=== PATIENT | female | born 1945 | race Caucasian/White ===

== ENCOUNTER → 2018-05-05 | Outpatient (CLI) | payer MEDICARE, OTHER | END | disposition home or self-care (01) | LOC: RAH 10:50 | PROVIDERS: ATTEND Physical Medicine & Rehabilitation | DX: R22.43 Localized swelling, mass and lump, lower limb, bilateral (principal) | CPT/HCPCS: 93970 ==

== ENCOUNTER 2018-09-26 18:16 | Inpatient (IN) | payer MEDICARE, OTHER ==
[~2018-09-26] VITALS: Ht 160 cm; Wt 97.9 kg
[~2018-09-26 18:16] MED LIST: ASPI-555 PO; ATOR40TA71 PO; FENO134C PO; FLUT1BLS3 IH; FURO40TA5 PO; GABA-531 PO; LEVO75TA10 PO
[2018-09-26] MEDS ORDERED: FENTANYL CITRATE PF 50 MCG/1 ML 2ML VIAL ONE (20:38)
[2018-09-26] MEDS ORDERED: ONDANSETRON HCL 4 MG/2 ML VIAL ONE (20:38)
[2018-09-26 22:12] LABS: APPEARANCE,URINE Clear (CLEAR); BILIRUBIN,URINE Negative (NEGATIVE); COLOR,URINE Yellow (YELLOW); GLUCOSE, URINE (UA) Negative (NEGATIVE); KETONES,URINE Negative (NEGATIVE); LEUKOCYTE ESTERASE ,URINE Negative (NEGATIVE); NITRATE,URINE Negative (NEGATIVE); OCCULT BLOOD,URINE Negative (NEGATIVE); PH,URINE 6.5 (5.0-8.0); PROTEIN,URINE Negative (NEGATIVE); UROBILINOGEN,URINE 0.2 mg/dL (0.2-1.0)
[2018-09-26] MEDS ORDERED: ACETAMINOPHEN 325 MG TAB PO PRN (22:15)
[2018-09-26] MEDS ORDERED: MORPHINE SULFATE 2 MG/ML 1ML SYG IV PRN (22:15)
[2018-09-26] MEDS ORDERED: ONDANSETRON HCL 4 MG/2 ML VIAL IV PRN (22:15)
[2018-09-26 23:10] VITALS: BP 146/79
[2018-09-27 04:00] VITALS: BP 154/68
[2018-09-27 07:29] VITALS: BP 158/77
[2018-09-27] MEDS: LEVOTHYROXINE 75 MCG TABLET PO SCH (09:00)
[2018-09-27] MEDS: GABAPENTIN 300 MG CAPSULE PO SCH ×3 (10:05→22:57)
[2018-09-27] MEDS: FAMOTIDINE 20MG TAB 20 MG TAB PO SCH ×2 (10:05→22:57)
[2018-09-27] MEDS: FUROSEMIDE 40 MG TABLET PO SCH ×2 (10:05→22:58)
[2018-09-27] MEDS: ENOXAPARIN SODIUM 40 MG/0.4 ML SYRINGE SQ SCH (10:07)
[2018-09-27] MEDS ORDERED: MORPHINE SULFATE 2 MG/ML 1ML SYG ONE (10:47)
[2018-09-27 11:00] VITALS: BP 144/80
[2018-09-27] MEDS: IPRATROPIUM/ALBUTEROL SULFATE 3 ML SOLUTION IH SCH ×2 (13:11→18:12)
[2018-09-27 16:00] VITALS: BP 144/74
[2018-09-27] MEDS: BUDESONIDE 0.5 MG/2 ML INH IH SCH (18:12)
[2018-09-27] MEDS ORDERED: GLUCAGON 1MG KIT 1 MG ML IM PRN (18:45)
[2018-09-27] MEDS ORDERED: DEXTROSE 50%-WATER 50 ML DISP.SYRIN IV PRN (18:45)
[2018-09-27] MEDS: DEXAMETHASONE SOD PHOSPHATE 4 MG/ML 1ML VIAL IVP SCH ×2 (19:09→23:54)
[2018-09-27] MEDS: MORPHINE SULFATE 2 MG/ML 1ML SYG IM PRN ×2 (19:10→23:53)
[2018-09-27 20:00] VITALS: BP 154/68
[2018-09-27] MEDS: FENOFIBRATE NANOCRYSTALLIZED 145 MG TAB PO SCH (22:57)
[2018-09-27] MEDS: ATORVASTATIN CALCIUM 40 MG TABLET PO SCH (22:58)
[2018-09-28] VITALS (25 sets, daily range): BP systolic 123–162; BP diastolic 58–80
[2018-09-28] MEDS: IPRATROPIUM/ALBUTEROL SULFATE 3 ML SOLUTION IH SCH ×5 (00:25→23:29)
[2018-09-28] MEDS: INSULIN R NPO SSI SQ SCH ×4 (06:00→18:00)
[2018-09-28] MEDS: DEXAMETHASONE SOD PHOSPHATE 4 MG/ML 1ML VIAL IVP SCH ×7 (06:05→23:33)
[2018-09-28] MEDS: MORPHINE SULFATE 2 MG/ML 1ML SYG IVP PRN ×2 (06:06→12:01)
[2018-09-28] MEDS: LEVOTHYROXINE 75 MCG TABLET PO SCH (06:30)
[2018-09-28] MEDS: BUDESONIDE 0.5 MG/2 ML INH IH SCH ×2 (06:38→18:34)
[2018-09-28] MEDS ORDERED: BUPIVACAINE/EPI/PF 0.25% 30ML VIAL IJ ONE (06:48)
[2018-09-28] MEDS ORDERED: THROMBIN-JMI 20000 UNIT KIT TP ONE (06:48)
[2018-09-28] MEDS ORDERED: DURAMORPH PF1 MG/ML 10ML AMP IV ONE (06:48)
[2018-09-28] MEDS ORDERED: BACITRACIN 50,000 UNIT VIAL ONE ×3 (06:48→08:23)
[2018-09-28] MEDS ORDERED: SODIUM CHLORIDE 0.9% 1000ML 1,000 ML IV ONE (06:52)
[2018-09-28] MEDS ORDERED: GLYCOPYRROLATE 1 MG/5 ML SYRINGE ONE (06:54)
[2018-09-28] MEDS ORDERED: LIDOCAINE PF 2% 5ML ABBOJECT ONE (06:54)
[2018-09-28] MEDS ORDERED: DEXAMETHASONE SOD PHOSPHATE 10MG/ML 1ML VIAL ONE ×2 (06:54→07:00)
[2018-09-28] MEDS ORDERED: NEOSTIGMINE 5MG/5ML SYR IV ONE (06:55)
[2018-09-28] MEDS ORDERED: PROPOFOL 10 MG/ML 20ML VIAL IV ONE (06:55)
[2018-09-28] MEDS ORDERED: ONDANSETRON HCL 4 MG/2 ML VIAL ONE (06:55)
[2018-09-28] MEDS ORDERED: MIDAZOLAM HCL 1 MG/ML 2ML VIAL ONE (06:55)
[2018-09-28] MEDS ORDERED: ROCURONIUM 10MG/1ML SYR 10 MG/ML ML ONE (06:55)
[2018-09-28] MEDS ORDERED: FENTANYL CITRATE PF 50 MCG/1 ML 2ML VIAL ONE ×2 (06:56→08:31)
[2018-09-28] MEDS: CEFAZOLIN SODIUM 1 GM VIAL IVP SCH ×4 (07:01→18:07)
[2018-09-28] MEDS ORDERED: EPHEDRINE SULFATE 50 MG/ML AMPULE ONE (07:27)
[2018-09-28] MEDS ORDERED: GENTAMICIN 80 MG/NS 100 ML PB 100 ML IV ONE (07:43)
[2018-09-28] MEDS ORDERED: GENTAMICIN SULFATE 80 MG/2 ML VIAL ONE (08:23)
[2018-09-28] MEDS: FAMOTIDINE 20MG TAB 20 MG TAB PO SCH ×2 (09:00→22:15)
[2018-09-28] MEDS: ENOXAPARIN SODIUM 40 MG/0.4 ML SYRINGE SQ SCH (09:00)
[2018-09-28] MEDS: FUROSEMIDE 40 MG TABLET PO SCH ×2 (09:00→22:15)
[2018-09-28] MEDS: GABAPENTIN 300 MG CAPSULE PO SCH ×3 (09:00→22:15)
[2018-09-28] MEDS ORDERED: SODIUM CHLORIDE 0.9% 10 ML VIAL IVP PRN (09:30)
[2018-09-28] MEDS ORDERED: MORPHINE SULFATE 2 MG/ML 1ML SYG IVP PRN (09:30)
[2018-09-28] MEDS ORDERED: PROMETHAZINE HCL 25 MG/ML 1ML AMPULE IM PRN (09:30)
[2018-09-28] MEDS ORDERED: ESMOLOL HCL 10 MG/ML 10 ML VIAL ONE (09:32)
[2018-09-28] MEDS: ASPIRIN 81 MG EC TAB PO SCH (09:41)
[2018-09-28] MEDS ORDERED: LABETALOL HCL 5 MG/ML 20ML VIAL IV ONE (10:16)
[2018-09-28] MEDS: LACTATED RINGERS 1000ML 1,000 ML IV SCH ×2 (12:02→22:37)
[2018-09-28] MEDS: HYDROCODONE/ACETAMINOPHEN 5/325 MG TAB PO PRN ×2 (18:07→22:26)
[2018-09-28] MEDS: FENOFIBRATE NANOCRYSTALLIZED 145 MG TAB PO SCH (22:15)
[2018-09-28] MEDS: ATORVASTATIN CALCIUM 40 MG TABLET PO SCH (22:15)
[2018-09-29] MEDS: CEFAZOLIN SODIUM 1 GM VIAL IVP SCH ×4 (00:34→18:57)
[2018-09-29] MEDS: LACTATED RINGERS 1000ML 1,000 ML IV SCH ×2 (00:40→13:41)
[2018-09-29] MEDS: DEXAMETHASONE SOD PHOSPHATE 4 MG/ML 1ML VIAL IVP SCH ×4 (03:43→20:56)
[2018-09-29 03:46] VITALS: BP 126/71
[2018-09-29] MEDS: HYDROCODONE/ACETAMINOPHEN 5/325 MG TAB PO PRN ×2 (04:44→13:41)
[2018-09-29 05:22] LABS: BASOPHILS % (AUTO) 0.4 % (0.0-5.0); HEMATOCRIT 29.5 % (36-48); LYMPHOCYTES % (AUTO) 5.9 % (21.0-51.0); MEAN CORPUSCULAR HEMOGLOBIN 26.4 pg (27.0-33.0); MEAN CORPUSCULAR VOLUME 80.2 fL (79-99); MONOCYTES % (AUTO) 6.3 % (3.0-13.0); NEUTROPHILS % (AUTO) 87.4 % (40.0-77.0); PLATELET COUNT (AUTO) 278 K/uL (130-400); RED BLOOD CELL COUNT(AUTO) 3.67 MIL/uL (4.00-5.50); RED CELL DISTRIBUTION WIDTH 15.5 % (11.0-15.5); WHITE BLOOD COUNT (AUTO) 12.7 K/uL (4.8-10.8)
[2018-09-29 05:30] LABS: CREATININE 0.9 mg/dL (0.5-1.5); POTASSIUM 3.7 mmol/L (3.5-5.1)
[2018-09-29] MEDS: IPRATROPIUM/ALBUTEROL SULFATE 3 ML SOLUTION IH SCH ×4 (05:56→23:03)
[2018-09-29] MEDS: INSULIN R NPO SSI SQ SCH ×2 (06:00)
[2018-09-29] MEDS: BUDESONIDE 0.5 MG/2 ML INH IH SCH ×2 (06:09→18:32)
[2018-09-29] MEDS: LEVOTHYROXINE 75 MCG TABLET PO SCH (06:31)
[2018-09-29 07:00] VITALS: BP 115/60
[2018-09-29] MEDS ORDERED: LACTULOSE 20 GM/30 ML UDCUP PO PRN (07:45)
[2018-09-29] MEDS: FAMOTIDINE 20MG TAB 20 MG TAB PO SCH ×2 (08:55→20:55)
[2018-09-29] MEDS: FUROSEMIDE 40 MG TABLET PO SCH ×2 (08:55→20:55)
[2018-09-29] MEDS: LACTULOSE 20 GM/30 ML UDCUP PO PRN ×2 (08:55→19:58)
[2018-09-29] MEDS: GABAPENTIN 300 MG CAPSULE PO SCH ×3 (08:55→20:55)
[2018-09-29] MEDS: ASPIRIN 81 MG EC TAB PO SCH (08:55)
[2018-09-29] MEDS: ENOXAPARIN SODIUM 40 MG/0.4 ML SYRINGE SQ SCH (08:56)
[2018-09-29 11:27] VITALS: BP 132/64
[2018-09-29] MEDS: INSULIN HUMULIN R 100 UNIT/ML 3ML SQ SCH ×3 (13:50→21:27)
[2018-09-29 15:00] VITALS: BP 147/72
[2018-09-29 19:51] VITALS: BP 138/60
[2018-09-29] MEDS: FENOFIBRATE NANOCRYSTALLIZED 145 MG TAB PO SCH (20:55)
[2018-09-29] MEDS: ATORVASTATIN CALCIUM 40 MG TABLET PO SCH (20:55)
[2018-09-29 23:42] VITALS: BP 168/75
[2018-09-30] MEDS: CEFAZOLIN SODIUM 1 GM VIAL IVP SCH ×2 (00:05→05:25)
[2018-09-30] MEDS: HYDROCODONE/ACETAMINOPHEN 5/325 MG TAB PO PRN (00:05)
[2018-09-30 04:00] VITALS: BP 150/76
[2018-09-30] MEDS: DEXAMETHASONE SOD PHOSPHATE 4 MG/ML 1ML VIAL IVP SCH ×2 (04:50→09:37)
[2018-09-30] MEDS: LACTATED RINGERS 1000ML 1,000 ML IV SCH (04:50)
[2018-09-30] MEDS: LEVOTHYROXINE 75 MCG TABLET PO SCH (05:25)
[2018-09-30] MEDS: INSULIN HUMULIN R 100 UNIT/ML 3ML SQ SCH ×2 (05:28→11:49)
[2018-09-30 06:16] LABS: BASOPHILS % (AUTO) 0.6 % (0.0-5.0); HEMATOCRIT 31.7 % (36-48); LYMPHOCYTES % (AUTO) 10.5 % (21.0-51.0); MEAN CORPUSCULAR HEMOGLOBIN 26.7 pg (27.0-33.0); MEAN CORPUSCULAR VOLUME 80.9 fL (79-99); MONOCYTES % (AUTO) 7.8 % (3.0-13.0); NEUTROPHILS % (AUTO) 81.1 % (40.0-77.0); PLATELET COUNT (AUTO) 366 K/uL (130-400); RED BLOOD CELL COUNT(AUTO) 3.91 MIL/uL (4.00-5.50); RED CELL DISTRIBUTION WIDTH 15.6 % (11.0-15.5); WHITE BLOOD COUNT (AUTO) 11.7 K/uL (4.8-10.8)
[2018-09-30] MEDS: IPRATROPIUM/ALBUTEROL SULFATE 3 ML SOLUTION IH SCH ×2 (06:25→11:33)
[2018-09-30 06:26] LABS: CREATININE 1.1 mg/dL (0.5-1.5); POTASSIUM 3.4 mmol/L (3.5-5.1)
[2018-09-30] MEDS: BUDESONIDE 0.5 MG/2 ML INH IH SCH (06:35)
[2018-09-30 07:00] VITALS: BP 143/73
[2018-09-30] MEDS: FUROSEMIDE 40 MG TABLET PO SCH (08:57)
[2018-09-30] MEDS: ASPIRIN 81 MG EC TAB PO SCH (08:57)
[2018-09-30] MEDS: GABAPENTIN 300 MG CAPSULE PO SCH (08:57)
[2018-09-30] MEDS: FAMOTIDINE 20MG TAB 20 MG TAB PO SCH (08:57)
[2018-09-30] MEDS: ENOXAPARIN SODIUM 40 MG/0.4 ML SYRINGE SQ SCH (09:00)
[2018-09-30 11:00] VITALS: BP 151/81
[2018-09-30] MEDS: MORPHINE SULFATE 2 MG/ML 1ML SYG IVP PRN (11:17)
== END 2018-09-30 15:00 | DRG 30 ==
LOC: EDH 18:16 → OBSVTOIN 21:30 → EDHIP 21:30 → 3BH 23:06
PROVIDERS: ADMIT Hospitalist; ATTEND Hospitalist
PROC: 009U0ZZ Drainage of Spinal Canal, Open Approach (ICD-10-PCS; principal; 2018-09-28 07:56)
PROC: 01NB0ZZ Release Lumbar Nerve, Open Approach (ICD-10-PCS; 2018-09-28 07:56)
DX: S06.4X0A Epidural hemorrhage without loss of consciousness, initial encounter (principal); M48.061 Spinal stenosis, lumbar region without neurogenic claudication; E78.5 Hyperlipidemia, unspecified; F17.210 Nicotine dependence, cigarettes, uncomplicated; I25.10 Atherosclerotic heart disease of native coronary artery without angina pectoris; E03.9 Hypothyroidism, unspecified; W01.0XXA Fall on same level from slipping, tripping and stumbling without subsequent striking against object, initial encounter; E66.01 Morbid (severe) obesity due to excess calories; Y93.01 Activity, walking, marching and hiking; Z82.3 Family history of stroke; Z90.710 Acquired absence of both cervix and uterus; Z98.1 Arthrodesis status; Z90.49 Acquired absence of other specified parts of digestive tract; Z90.89 Acquired absence of other organs; Z79.899 Other long term (current) drug therapy; Z68.38 Body mass index [BMI] 38.0-38.9, adult; Y92.89 Other specified places as the place of occurrence of the external cause; Y99.8 Other external cause status; R33.9 Retention of urine, unspecified
CPT/HCPCS: 36415; 72020; 72100; 72148; 73560; 80048; 81003; 82948; 85025; 87070; 87076; 87205; 94640; 94664; 97039; A4218; A4344; J0690; J1100; J1580; J1650; J1815; J2001; J2250; J2274; J2405; J2704; J2710; J3010; J3490; J7030; J7120

== ENCOUNTER 2018-10-20 12:23 | Emergency (ER) | payer MEDICARE, OTHER ==
[2018-10-20 13:00] LABS: BASOPHILS % (AUTO) 0.7 % (0.0-5.0); EOSINOPHILS % (AUTO) 1.4 % (0.0-8.0); HEMATOCRIT 35.4 % (36-48); MEAN CORPUSCULAR HEMOGLOBIN 25.6 pg (27.0-33.0); MEAN CORPUSCULAR HGB CONC 32.5 g/dL (32.0-36.0); MEAN CORPUSCULAR VOLUME 78.9 fL (79-99); MONOCYTES % (AUTO) 11.4 % (3.0-13.0); NEUTROPHILS % (AUTO) 67.5 % (40.0-77.0); PLATELET COUNT (AUTO) 347 K/uL (130-400); RED BLOOD CELL COUNT(AUTO) 4.49 MIL/uL (4.00-5.50); RED CELL DISTRIBUTION WIDTH 15.3 % (11.0-15.5); WHITE BLOOD COUNT (AUTO) 7.3 K/uL (4.8-10.8)
[2018-10-20] MEDS ORDERED: SODIUM CHLORIDE 0.9% 1000ML 1,000 ML IV ONE (13:02)
[2018-10-20] MEDS ORDERED: ONDANSETRON HCL 4 MG/2 ML VIAL ONE (13:03)
[2018-10-20 13:11] LABS: CREATININE 0.9 mg/dL (0.5-1.5); POTASSIUM 3.5 mmol/L (3.5-5.1)
[2018-10-20 13:21] LABS: ALBUMIN 3.5 g/dL (3.5-5.0); BILIRUBIN,TOTAL 0.4 mg/dL (0.2-1.0); TOTAL PROTEIN, SERUM 7.5 g/dL (6.0-8.3)
== END 2018-10-20 15:20 | disposition home or self-care (01) ==
LOC: EDH 12:23
CPT/HCPCS: 36415; 80053; 85025; 96361; 96374; J2405; J7030

== ENCOUNTER → 2018-11-13 | Outpatient (CLI) | payer MEDICARE, OTHER | END | disposition home or self-care (01) | LOC: RAH 10:27 | PROVIDERS: ATTEND Neurological Surgery | DX: M43.26 Fusion of spine, lumbar region (principal); I70.0 Atherosclerosis of aorta | CPT/HCPCS: 72100 ==

== ENCOUNTER → 2019-07-14 | Outpatient (CLI) | payer MEDICARE, OTHER | END | disposition home or self-care (01) | LOC: SHCH 12:13 | PROVIDERS: ATTEND Internal Medicine Cardiovascular Disease | DX: I87.2 Venous insufficiency (chronic) (peripheral) (principal) | CPT/HCPCS: 93970 ==

== ENCOUNTER → 2019-09-24 | Outpatient (CLI) | payer MEDICARE, OTHER | END | disposition home or self-care (01) | LOC: RAH 12:46 | PROVIDERS: ATTEND Physical Medicine & Rehabilitation | DX: M47.26 Other spondylosis with radiculopathy, lumbar region (principal); M99.13 Subluxation complex (vertebral) of lumbar region; M48.061 Spinal stenosis, lumbar region without neurogenic claudication | CPT/HCPCS: 72148 ==

== ENCOUNTER → 2021-05-14 | Outpatient (CLI) | payer MEDICARE, OTHER ==
[~2021-05-14] VITALS: Ht 160 cm; Wt 95.3 kg
[~2021-05-14] MED LIST changes: -ASPI-555 PO; +ASPI-556 PO; +REGADENOSON 0.4 MG/5 ML PF SYG IVP SCH
== END | disposition home or self-care (01) ==
LOC: SHCH 08:31
PROVIDERS: ATTEND Internal Medicine Cardiovascular Disease
DX: R06.09 Other forms of dyspnea (principal); R07.9 Chest pain, unspecified; R10.9 Unspecified abdominal pain
CPT/HCPCS: 78452; 93017; 96374; A9500 ×2; J2785

== ENCOUNTER → 2021-05-16 | Outpatient (CLI) | payer MEDICARE, OTHER ==
[~2021-05-16] MED LIST changes: -REGADENOSON 0.4 MG/5 ML PF SYG IVP SCH
== END | disposition home or self-care (01) ==
LOC: OIH 10:36
PROVIDERS: ATTEND Physical Medicine & Rehabilitation
DX: M19.011 Primary osteoarthritis, right shoulder (principal)
CPT/HCPCS: 73030

== ENCOUNTER → 2021-07-23 | Outpatient (CLI) | payer MEDICARE, OTHER | END | disposition home or self-care (01) | LOC: SHCH 13:55 | PROVIDERS: ATTEND Internal Medicine Cardiovascular Disease | DX: I34.0 Nonrheumatic mitral (valve) insufficiency (principal); R55 Syncope and collapse; I10 Essential (primary) hypertension; F17.210 Nicotine dependence, cigarettes, uncomplicated | CPT/HCPCS: 93306; 93356 ==

== ENCOUNTER → 2023-05-03 | Outpatient (CLI) | payer MEDICARE, OTHER ==
[~2023-05-03] MED LIST changes: +ALBU2.5V2 IH; +AMOX1TAB16 PO; -ASPI-556 PO; +CYCL5TAB PO; +DEXA4 PO; -FENO134C PO; -FURO40TA5 PO; -LEVO75TA10 PO; +LOSA50TA64 PO; +POTA10CA85 PO; +SPIR25TA6 PO
== END | disposition home or self-care (01) ==
LOC: SHCH 10:49
PROVIDERS: ATTEND Student in an Organized Health Care Education/Training Program
DX: I34.0 Nonrheumatic mitral (valve) insufficiency (principal); I51.7 Cardiomegaly; I51.89 Other ill-defined heart diseases
CPT/HCPCS: 93306